=== PATIENT | male | born 1985 | race Two or more races ===

== ENCOUNTER 2017-12-11 02:03 | Emergency (ER) | payer OTHER ==
[~2017-12-11] VITALS: Ht 167.6 cm; Wt 108.9 kg
[2017-12-11 02:22] VITALS: BP 126/93
[2017-12-11] MEDS ORDERED: methylPREDNISolone SOD SUCC 125 MG/2 ML VL IM ONE (05:15)
[2017-12-11] MEDS ORDERED: CYCLOBENZAPRINE HCL 10 MG TAB PO ONE (05:15)
[2017-12-11] MEDS ORDERED: KETOROLAC TROMETH 60MG/2ML VIAL IM ONE (05:15)
== END 2017-12-11 05:50 | disposition home or self-care (01) ==
LOC: ER 02:03
DX: S33.5XXA Sprain of ligaments of lumbar spine, initial encounter (principal); M79.1 Myalgia; X50.0XXA Overexertion from strenuous movement or load, initial encounter; Y93.89 Activity, other specified; Y99.8 Other external cause status; Y92.89 Other specified places as the place of occurrence of the external cause
CPT/HCPCS: 72131; 96372; 99284; J1885; J2930